=== PATIENT | male | born 2000 ===

== ENCOUNTER 2021-08-20 16:02 | Emergency (ER) | payer SELFPAY ==
[~2021-08-20] VITALS: Ht 165.1 cm; Wt 61.4 kg
[2021-08-20 16:42] VITALS: BP 144/89; TEMP 99.1
[2021-08-20] MEDS ORDERED: CEPHALEXIN500 M1 PO (17:11)
[2021-08-20 17:30] VITALS: PULSE 82
== END 2021-08-20 17:30 | disposition home or self-care (01) ==
LOC: COL.ER 16:02
DX: S61.032A Puncture wound without foreign body of left thumb without damage to nail, initial encounter (principal); Z23 Encounter for immunization; W29.4XXA Contact with nail gun, initial encounter